=== PATIENT | male | born 1990 | race Two or more races ===

== ENCOUNTER 2020-10-06 10:02 | Emergency (ER) | payer BC, OTHER ==
[~2020-10-06] VITALS: Ht 175.3 cm; Wt 73.5 kg
[2020-10-06 10:03] VITALS: BP 142/85
== END 2020-10-06 11:07 | disposition home or self-care (01) ==
LOC: ER 10:02
DX: B02.9 Zoster without complications (principal)

== ENCOUNTER 2022-03-10 11:57 | Emergency (ER) | payer BC ==
[~2022-03-10] VITALS: Ht 170.2 cm; Wt 77.4 kg
[2022-03-10 19:41] LABS: Basophils # (auto) 0 10 ^3/uL (0-0.2); Basophils % (auto) 0.3 % (0.0-2.0); Eosinophils # (auto) 0 10 ^3/uL (0-0.8); Eosinophils % (auto) 0.1 % (0.0-7.0); Monocytes # (auto) 0.6 10 ^3/uL (0-1.3); White Blood Cell 10.8 10^3/uL (4.4-10.8)
[2022-03-10 19:43] LABS: Hematocrit 42.4 % (41.0-53.0); Lymphocytes # (auto) 2.2 10 ^3/uL (0.4-5.4); Lymphocytes % (auto) 20.8 % (10.0-50.0); Mean Corpuscular Hemoglobin 26.9 pg (28.0-32.0); Mean Corpuscular Hgb Conc. 33.1 g/dL (32.0-36.0); Mean Corpuscular Volume 81.1 fL (80.0-100.0); Monocytes % (auto) 5.8 % (0.0-12.0); Neutrophils # (auto) 7.9 10 ^3/uL (1.6-8.6); Nucleated Red Blood Cells % 0.2 %; Red Blood Cells 5.22 10^6/uL (4.5-5.90)
[2022-03-10 19:56] LABS: Calcium 9.1 mg/dL (8.5-10.1); Potassium 3.6 mmol/L (3.5-5.1)
[2022-03-10 19:59] LABS: Albumin 4.5 g/dL (3.4-5.0); BUN/Creatinine Ratio 13.6
[2022-03-10 20:02] LABS: Bilirubin, Total 0.4 mg/dL (0.2-1.0); Total Protein 7.9 g/dL (6.4-8.2)
[2022-03-10 22:40] VITALS: BP 120/74
== END 2022-03-10 22:53 | disposition home or self-care (01) ==
LOC: ER 11:57
DX: R07.89 Other chest pain (principal)
CPT/HCPCS: 36415; 71046; 80053; 84484; 85025; 93005